=== PATIENT | female | born 2000 | race African-American/Black ===

== ENCOUNTER → 2018-11-18 13:10 | Observation (INO) ==
--- NOTE | 2018-11-18 12:15 | OB/GYN Progress Note ---
Date of Encounter: 11/18/18 Time of Encounter: 12:12 - Assessment and Plan (1) 30 weeks gestation of Current Visit: Yes Status: Acute admitted for observation Subjective - Subjective Principal diagnosis: Vaginal bleeding Interval history: Patient is a 18 y/o at 30w0d presents to labor and delivery with complaints of a small spot of blood that was noted when she wiped after peeing this morning around 0700. Patient denies any bleeding since. Patient denies LOF or cramping. Denies any urinary symptoms or intercourse in past 48 hours. Denies vaginal itching, burning or odor. Patient reports good movement. Patient denies any complications with current . Antepartum ROS: movement normal, no loss of fluid, no contractions Objective - Vital Signs Vital Signs: Intake and Output 11/17/18 11/18/18 11/18/18 23:59 07:59 15:59 Other: Weight 57.2 kg Patient Weight 11/18/18 23:59 Weight 57.2 kg - Exam FHR: auscultation normal, category 1 FHR comments: 155 bpm moderate variability +15x15 accels no decels noted. Uterine irritability noted. Auscultation: bilateral: normal Abdomen: Present: normal appearance, soft, gravid Uterus: Present: normal Cervical dilation: closed Cervix effacement: thick station: ballotable Comments: speculum exam: No blood noted, small amount of thin white discharge noted.
[2018-11-18 12:33] LABS: Bilirubin,Urine Negative (Negative); Blood,Urine Negative (Negative); Clarity,Urine Cloudy (Clear); Color,Urine Yellow (Yellow); Glucose,Urine (UA) Normal (Normal); Ketones,Urine Negative (Negative); Leukocyte Esterase,Urine Small (Negative); Nitrite,Urine Negative (Negative); PH,Urine 7.5 pH Units (5.0-8.0); Protein,Urine Negative (Neg-Trace); Specific Gravity,Urine 1.016 (1.010-1.025); Urobilinogen,Urine Normal (Normal)
[2018-11-18 12:34] LABS: Amphetamine Screen,Urine Negative ng/mL (Cutoff=1000); Barbiturate Screen,Urine Negative ng/mL (Cutoff=200); Benzodiazepines Screen,Urine Negative ng/mL (Cutoff=200); Cannabinoid Screen,Urine Negative ng/mL (Cutoff = 50); Cocaine Screen,Urine Negative ng/mL (Cutoff= 300); Opiate Screen,Urine Negative ng/mL (Cutoff=300); Phencyclidine Screen,Urine Negative ng/mL (Cutoff=25)
[2018-11-18 12:35] LABS: Bacteria,Urine Few per hpf (None-Few); Hyaline Casts,Urine None Seen per lpf (None-Few); RBC,Urine 0-3 per hpf (0-3); Squamous Epithelial Cell,Urine Many per lpf (None-Few)
--- NOTE | 2018-11-18 13:06 | Discharge Summary ---
Date of Encounter: 11/18/18 Time of Encounter: 13:04 - Discharge Diagnosis (1) 30 weeks gestation of Priority: Primary Status: Acute Comments: discharge home follow up with Dr. Huynh as scheduled on Thursday - Discharge Medications Prescriptions: No Action Prenatl Vit6/Iron/FA/B12/Ca/D3 [Mteryti Combo Pack] 1 mg PO DAILY Ferrous Fumarate/Iron Ps Cplx 1 mg PO DAILY Home Medications: Ferrous Fumarate/Iron Ps Cplx 1 mg PO DAILY 11/18/18 [History] Prenatl Vit6/Iron/FA/B12/Ca/D3 [Mteryti Combo Pack] 1 mg PO DAILY 11/18/18 [History] Allergies/Adverse Reactions: Allergy/AdvReac Type Severity Reaction Status Date / Time No Known Allergies Allergy Verified 10/26/17 13:04 Data Procedures and tests throughout hospitalization: Laboratory Tests 11/18/18 11/18/18 11:58 12:10 Urine Color Yellow Urine Clarity Cloudy A Urine pH 7.5 Ur Specific [place] 1.016 Urine Protein Negative Urine Glucose (UA) Normal Urine Ketones Negative Urine Blood Negative Urine Nitrite Negative Urine Bilirubin Negative Urine Urobilinogen Normal Ur Leukocyte Esterase Small H Urine Microscopic RBC 0-3 Urine Microscopic WBC 5-15 H Ur Squamous Epith Cells Many H Urine Bacteria Few Hyaline Casts None Seen Ur Culture Indicated? YES A Urine Opiates Screen Negative Ur Buprenorphine Scrn Negative Ur Barbiturates Screen Negative Ur Phencyclidine Scrn Negative Ur Amphetamines Screen Negative U Benzodiazepines Scrn Negative Urine Cocaine Screen Negative U Marijuana (THC) Screen Negative Ur Drug Screen Interp See Below Labs on day of discharge: Labs from last 24 hours 11/18/18 11/18/18 12:10 11:58 Urine Color Yellow Urine Clarity Cloudy A Urine pH 7.5 Ur Specific [place] 1.016 Urine Protein Negative Urine Glucose (UA) Normal Urine Ketones Negative Urine Blood Negative Urine Nitrite Negative Urine Bilirubin Negative Urine Urobilinogen Normal Ur Leukocyte Esterase Small H Urine Microscopic RBC 0-3 Urine Microscopic WBC 5-15 H Ur Squamous Epith Cells Many H Urine Bacteria Few Hyaline Casts None Seen Ur Culture Indicated? YES A Urine Opiates Screen Negative Ur Buprenorphine Scrn Negative Ur Barbiturates Screen Negative Ur Phencyclidine Scrn Negative Ur Amphetamines Screen Negative U Benzodiazepines Scrn Negative Urine Cocaine Screen Negative U Marijuana (THC) Screen Negative Ur Drug Screen Interp See Below Date of admission: 11/18/18 11:33 Primary care physician: Kenn Owen DO Discharging clinician: Alison Best Anticipated date of discharge: 11/18/18 - Patient Status Disposition: Home, Self-Care Condition: Good Functional capacity at discharge: independent ambulation - Discharge Instructions Follow Up With: Kenn Owen DO [Primary Care Provider] - Mykel Huynh MD [Partnered Physician] - - Diet and Activity Activity: increase activity as tolerated Diet: regular diet Hospital Course [employer] Hospital course: Discussed assessment with Dr. Serrano. Plan to discharge home. Time Attestation: Total time spent providing and/or coordinating discharge services: Time Spent: Less than 30 minutes Exam - Constitutional General appearance IM: A&O X 3, pleasant, answers questions appropriately - VTE Reasons for not Prescribing Prophylaxis: Treatment not Indicated - Low risk for VTE
== END | disposition home or self-care (01) ==
LOC: 1NENULAB
PROVIDERS: ADMIT Advanced Practice Midwife; ATTEND Advanced Practice Midwife

== ENCOUNTER 2019-01-15 15:46 | Inpatient (IN) ==
[2019-01-15 10:27] LABS: Amphetamine Screen,Urine Negative ng/mL (Cutoff=1000); Barbiturate Screen,Urine Negative ng/mL (Cutoff=200); Benzodiazepines Screen,Urine Negative ng/mL (Cutoff=200); Cannabinoid Screen,Urine Negative ng/mL (Cutoff = 50); Cocaine Screen,Urine Negative ng/mL (Cutoff= 300); Opiate Screen,Urine Negative ng/mL (Cutoff=300); Phencyclidine Screen,Urine Negative ng/mL (Cutoff=25)
[2019-01-15 15:43] LABS: Basophils # 0.1 K/mcL (0.0-0.2); Basophils % 0.3 %; Eosinophils % 0.3 %; Hematocrit 33.3 % (35.3-44.9); Hemoglobin 10.9 g/dL (11.5-15.4); Immature Granulocytes % 1.7 % (0-4); Immature Platelets 3.8 % (1.1-6.1); Lymphocytes # 2.2 K/mcL (0.6-4.6); Lymphocytes % 14.4 %; Mean Corpuscular HGB Conc 32.7 g/dL (31.6-35.5); Mean Corpuscular Hemoglobin 27.9 pg (28.0-33.3); Mean Corpuscular Volume 85.4 fL (83.0-100.0); Mean Platelet Volume 10.3 fL (9.4-12.4); Monocytes # 1.8 K/mcL (0.0-1.3); Monocytes % 11.8 %; Neutrophils # 11.1 K/mcL (1.6-8.9); Platelet Count 214 K/mcL (140-400); Segmented Neutrophils % 71.5 %; White Blood Count 15.6 K/mcL (4.3-11.1)
[~2019-01-15 15:46] MED LIST: *HR* Nalbuphine 10 MG/ML AMPUL IVP PRN; Epidural Premix (fent/bupiv) 110 ML EP SCH; Famotidine 20 MG/2 ML VIAL IVP PRN; Lidocaine 1% 20 ML MDV INFILT PRN; Metoclopramide 10 MG/2 ML VIAL IVP PRN; Naloxone 0.4 MG/ML INJ IVP PRN; Ondansetron 4 MG/2 ML VIAL IVP PRN; Ringers Solution, Lactated 1,000 ML ONE
[2019-01-15] MEDS: Ringers Solution, Lactated 1,000 ML IVC SCH ×2 (15:54→19:54)
[2019-01-15] MEDS ORDERED: Oxytocin 20 units/ LR 1000 mL 20 UNIT/1,000 ML BAG IVC ONE (21:13)
[2019-01-16] MEDS ORDERED: Oxytocin 20 units/ LR 1000 mL 20 UNIT/1,000 ML BAG IVC ONE (06:38)
[2019-01-16] MEDS ORDERED: Benzocaine/Menthol 56 GM AEROSOL SPRAY TP PRN (08:09)
[2019-01-16] MEDS ORDERED: Oxytocin 20 units/ LR 1000 mL 20 UNIT/1,000 ML BAG IVC SCH (08:09)
[2019-01-16] MEDS ORDERED: Acetaminophen 325 MG TABLET PO PRN (08:09)
[2019-01-16] MEDS ORDERED: Lanolin 7 G OINT...G. TP PRN (08:09)
[2019-01-16] MEDS: Prenatal Vit/FA 1 EACH TABLET PO SCH (09:01)
[2019-01-16] MEDS: Ibuprofen 600 MG TABLET PO PRN ×2 (09:01→23:41)
[2019-01-16] MEDS: Aspirin 81 MG TAB.CHEW PO SCH (09:08)
[2019-01-17 06:25] LABS: Basophils % 0.2 %; Eosinophils # 0.1 K/mcL (0.0-0.6); Eosinophils % 0.4 %; Hematocrit 26.2 % (35.3-44.9); Immature Granulocytes % 1.3 % (0-4); Lymphocytes # 2.8 K/mcL (0.6-4.6); Lymphocytes % 14.8 %; Mean Corpuscular HGB Conc 33.2 g/dL (31.6-35.5); Mean Corpuscular Hemoglobin 27.9 pg (28.0-33.3); Mean Platelet Volume 10.1 fL (9.4-12.4); Monocytes # 2.3 K/mcL (0.0-1.3); Monocytes % 12.4 %; Neutrophils # 13.2 K/mcL (1.6-8.9); Platelet Count 191 K/mcL (140-400); Red Blood Count 3.12 M/mcL (3.82-4.97); Red Cell Distribution Width 14.1 % (11.5-14.5); Segmented Neutrophils % 70.9 %; White Blood Count 18.6 K/mcL (4.3-11.1)
[2019-01-17 06:26] LABS: Hemoglobin 8.7 g/dL (11.5-15.4)
[2019-01-17] MEDS ORDERED: FLU Vac QV 19-20 (6Month+)/PF 0.5 ML SYRINGE IM ONE (07:18)
[2019-01-17] MEDS: Aspirin 81 MG TAB.CHEW PO SCH (07:23)
[2019-01-17] MEDS: Prenatal Vit/FA 1 EACH TABLET PO SCH (07:23)
[2019-01-17 07:31] VITALS: BP 95/57
== END 2019-01-17 11:57 | disposition home or self-care (01) | DRG 560 ==
LOC: 1NENULAB → 1NENUOBS 01-16 08:08
PROVIDERS: ADMIT Advanced Practice Midwife; ATTEND Advanced Practice Midwife